=== PATIENT | male | born 1970 | race Caucasian/White ===

== ENCOUNTER 2017-07-24 12:14 | Emergency (ER) | payer BC ==
[2017-07-24 12:39] VITALS: BP 120/70
--- NOTE | 2017-07-24 12:46 | EDM.PDOC ---
ED HPI GENERAL MEDICAL PROBLEM - General Chief Complaint: Upper Extremity Injury/Pain Stated Complaint: HURT RT HAND Time Seen by Provider: 07/24/17 12:35 Source of Information: Reports: Patient History Limitations: Reports: No Limitations - History of Present Illness INITIAL COMMENTS - FREE TEXT/NARRATIVE: Slipped on the ice early this morning and got his R hand caught in the car bumper? Has pain and swelling of the MC joint of R long finger. Is R handed. Onset: Today Onset Date: 07/24/17 Onset Time: 07:00 Duration: Hour(s):, Constant Location: Reports: Upper Extremity, Right Quality: Reports: Dull Severity: Mild Improves with: Reports: Rest Worsens with: Reports: Movement Context: Reports: Trauma Associated Symptoms: Reports: No Other Symptoms Treatments HAND SALTER: Reports: Other (see below) (kaleb taped long finger to the ring finger) Right 3-Middle finger Pain Score (Numeric/FACES): 2 - Related Data Allergies Allergy/AdvReac Type Severity Reaction Status Date / Time Penicillins Allergy Hives Verified 07/24/17 12:42 Home Meds: Home Meds Albuterol Sulfate [Proair Hfa] 8.5 gm IH QID PRN 09/21/14 [History] Fluticasone/Salmeterol [Advair 100-50 Diskus] 1 puff INH BID 09/21/14 [History] Social & Family History - Tobacco Use Smoking Status *Q: Never Smoker Second Hand Smoke Exposure: No - Alcohol Use Days Per Week of Alcohol Use: 3 Number of Drinks Per Day: 1 Total Drinks Per Week: 3 - Recreational Drug Use Recreational Drug Use: No Review of Systems - Review of Systems Review Of Systems: See Below Constitutional: Reports: No Symptoms Musculoskeletal: Reports: Hand Pain (right) Skin: Reports: No Symptoms Neurological: Reports: No Symptoms ED EXAM, GENERAL - Physical Exam Exam: See Below Exam Limited By: No Limitations General Appearance: Alert, WD/WN, No Apparent Distress Eye Exam: Bilateral Eye: Normal Inspection Ears: Normal External Exam, Hearing Grossly Normal Ear Exam: Bilateral Ear: Auricle Normal, Canal Normal Extremities: Other (minimal puffiness of the R hand over the MC joint of the long finger.) Neurological: Alert, Oriented, CN II-XII Intact, Normal Cognition, Normal Gait, Other Psychiatric: Normal Affect, Normal Mood Course - Vital Signs Last Recorded V/S: Last Vital Signs Temp 36.4 C 07/24/17 12:36 Pulse 73 07/24/17 12:36 Resp 14 07/24/17 12:36 BP 120/70 07/24/17 12:36 Pulse Ox 99 07/24/17 12:36 - Orders/Labs/Meds Orders: Active Orders 24 hr Category Date Time Status Hand Comp Min 3V Rt [CR] Stat Exams 07/24/17 12:39 Taken - Radiology Interpretation Free Text/Narrative:: R hand [id number] Departure - Departure Time of Disposition: 13:20 Disposition: Home, Self-Care 01 Condition: Good Clinical Impression: Hand injury Qualifiers: Encounter type: initial encounter Laterality: right Qualified Code(s): S69.91XA - Unspecified injury of right wrist, hand and finger(s), initial encounter - Discharge Information Referrals: Raman Garcia MD [Primary Care Provider] - Forms: ED Department Discharge - My Orders Last 24 Hours: My Active Orders 07/24/17 12:39 Hand Comp Min 3V Rt [CR] Stat - Assessment/Plan Last 24 Hours: My Active Orders 07/24/17 12:39 Hand Comp Min 3V Rt [CR] Stat
--- NOTE | 2017-07-25 09:07 | CR ---
No fracture or dislocation.
== END 2017-07-24 13:59 | disposition home or self-care (01) ==
LOC: JP.ED 12:14
DX: S69.91XA Unspecified injury of right wrist, hand and finger(s), initial encounter (principal); Z88.0 Allergy status to penicillin; W23.0XXA Caught, crushed, jammed, or pinched between moving objects, initial encounter
CPT/HCPCS: 73130-26-RT; 73130-RT; 99284

== ENCOUNTER 2019-05-19 19:20 | Emergency (ER) | payer BC ==
[2019-05-19 19:50] VITALS: BP 105/57; PULSE 83
--- NOTE | 2019-05-19 19:55 | EDM.PDOC ---
ED HPI GENERAL MEDICAL PROBLEM - General Chief Complaint: Skin Complaint Stated Complaint: CUT ON LEFT POINTER FINGER Time Seen by Provider: 05/19/19 19:44 Source of Information: Reports: Patient, Family, RN Notes Reviewed History Limitations: Reports: No Limitations - History of Present Illness INITIAL COMMENTS - FREE TEXT/NARRATIVE: 49-year-old gentleman presents emergency department today following trauma at home he accidentally drove a wood screw through the distal tip of digit #2 left hand - Related Data Allergies Allergy/AdvReac Type Severity Reaction Status Date / Time Penicillins Allergy Hives Verified 05/19/19 19:42 Home Meds: Home Meds Albuterol Sulfate [Proair Hfa] 8.5 gm IH QID PRN 09/21/14 [History] Fluticasone/Salmeterol [Advair 100-50 Diskus] 1 puff INH BID 09/21/14 [History] Past Medical History HEENT History: Reports: Impaired Vision Respiratory History: Reports: Asthma - Past Surgical History HEENT Surgical History: Reports: Polypectomy Social & Family History - Tobacco Use Smoking Status *Q: Never Smoker ED ROS GENERAL - Review of Systems Review Of Systems: See Below Skin: Reports: Wound Neurological: Reports: Numbness ED EXAM, SKIN/RASH Exam: See Below Text/Narrative:: examination left hand radial pulses +2 does have a puncture wound on the palmar surface of digit #2 distal tip full range of motion all digits Course - Vital Signs Last Recorded V/S: Last Vital Signs Temp 97.2 F 05/19/19 19:48 Pulse 83 05/19/19 19:48 Resp 14 05/19/19 19:48 BP 105/57 L 05/19/19 19:48 Pulse Ox 98 05/19/19 19:48 Departure - Departure Time of Disposition: 20:58 Disposition: Home, Self-Care 01 Condition: Fair Clinical Impression: Puncture wound of finger of left hand Qualifiers: Encounter type: initial encounter Qualified Code(s): S61.239A - Puncture wound without foreign body of unspecified finger without damage to nail, initial encounter - Discharge Information Instructions: Wound Care, Adult, Puncture Wound, [id number] Referrals: PCP,None [Primary Care Provider] - Forms: ED Department Discharge Additional Instructions: Follow wound care instruction sheet, Please followup with your primary care provider in 3-5 days if not better, please call return to the emergency department with worsening of symptoms. - Assessment/Plan Plan: Assessment Acuity = acute Site and laterality = puncture wound digit #2 left hand Etiology = trauma Manifestations = none Location of injury = Home Lab values = x-ray reveals no injury to the bone Plan Wound was cleaned and dressed bacitracin applied follow-up primary care as needed This note was dictated using DrFirst voice recognition software please call with any questions on syntax or grammar.
--- NOTE | 2019-05-19 20:35 | CRLCR ---
INDICATION: Pain in the 2nd finger after trauma. COMPARISON: None available. FINDINGS: The left 2nd finger was examined with PA, lateral and oblique views for a total of three views. There is no sign of fracture or dislocation. There is no sign of radiopaque foreign body. No significant degenerative changes are seen. IMPRESSION: Normal left 2nd finger. Dictated by Morgan Santos MD @ May 19 2019 8:32PM Signed by Dr. Morgan Santos @ May 19 2019 8:33PM
== END 2019-05-19 21:08 | disposition home or self-care (01) ==
LOC: JP.ED 19:20
DX: S61.231A Puncture wound without foreign body of left index finger without damage to nail, initial encounter (principal); J45.909 Unspecified asthma, uncomplicated; Z88.0 Allergy status to penicillin; Z79.899 Other long term (current) drug therapy; W27.0XXA Contact with workbench tool, initial encounter; Y92.009 Unspecified place in unspecified non-institutional (private) residence as the place of occurrence of the external cause
CPT/HCPCS: 73140-F1; 99283-25

== ENCOUNTER 2024-08-30 10:51 | Emergency (ER) | payer BC ==
[2024-08-30 11:19] VITALS: BP 129/67; PULSE 85
== END 2024-08-30 12:12 | disposition home or self-care (01) ==
LOC: JP.ED 10:51
DX: J06.9 Acute upper respiratory infection, unspecified (principal); Z79.51 Long term (current) use of inhaled steroids; Z88.0 Allergy status to penicillin
CPT/HCPCS: 87428-QW; 99283